=== PATIENT | male | born 1965 | race Caucasian/White ===

== ENCOUNTER 2018-03-01 10:01 | Emergency (ER) | payer BC ==
[~2018-03-01] VITALS: Ht 170.2 cm; Wt 84.0 kg
[~2018-03-01 10:01] MED LIST: PERCOCET 5/31 TABLET PO; ULTRAM50 MG PO; ZOFRAN4 MG PO
[2018-03-01 11:56] LABS: HEMATOCRIT 42.1 % (38.0-50.0); HEMOGLOBIN 15.1 G/DL (12.5-16.6); MCH 33.4 PG (29.0-34.0); MCHC 35.9 G/DL (30.0-36.0); MCV 93.1 FL (86-99); PLATELET COUNT 227 K/uL (156-360); RBC DIS.WIDTH-CV 12.3 % (11.8-14.6); RBC DIS.WIDTH-SD 42.8 % (39-53); RED BLOOD COUNT 4.52 M/uL (4.00-5.50); WHITE BLOOD COUNT 7.4 K/uL (4.1-10.2)
[2018-03-01 12:27] LABS: TROP-I INTERPRETATION NEGATIVE; TROPONIN-I < 0.01 ng/mL (0.0-0.30)
[2018-03-01 12:38] LABS: CHLORIDE 102 MEQ/L (99-109); POTASSIUM 4.2 MEQ/L (3.7-5.4); SODIUM 137 MEQ/L (136-147)
[2018-03-01 12:44] LABS: GFR ESTIMATE (CALCULATED) > 59 mL/min/ (58.99-99999); GLUCOSE 115 mg/dL (70-99); UREA NITROGEN (BUN) 13 mg/dL (9-23)
[2018-03-01 13:18] VITALS: BP 154/95
== END 2018-03-01 13:19 | disposition home or self-care (01) ==
LOC: EME 10:01
PROVIDERS: Nurse Practitioner Family
DX: R07.89 Other chest pain (principal); Z71.6 Tobacco abuse counseling; F17.210 Nicotine dependence, cigarettes, uncomplicated; I10 Essential (primary) hypertension; J44.9 Chronic obstructive pulmonary disease, unspecified; F32.9 Major depressive disorder, single episode, unspecified; Z88.1 Allergy status to other antibiotic agents; Z88.8 Allergy status to other drugs, medicaments and biological substances
CPT/HCPCS: 71046; 80048; 84484; 85027; 93005; 94640; 99281; 99284